=== PATIENT | female | born 1975 | race Caucasian/White ===

== ENCOUNTER 2017-09-23 17:03 | Emergency (ER) | payer OTHER ==
[~2017-09-23] VITALS: Ht 157.5 cm; Wt 68.0 kg
[~2017-09-23 17:03] MED LIST: BACTRIM DS TAB1 EACH PO; DOXYCYCLINE 10100 MG PO; FLAGYL500 MG PO; PERCOCET 5-3251 EACH PO; ULTRAM50 MG PO
[2017-09-23] MEDS ORDERED: NOHOMEMEDICATIONS (17:16)
[2017-09-23 17:33] LABS: URINE BILIRUBIN NEGATIVE (Negative); URINE BLOOD NEGATIVE (Negative); URINE COLOR YELLOW; URINE GLUCOSE-RANDOM NEGATIVE (Negative); URINE KETONES NEGATIVE (Negative); URINE NITRITE-REFLEX NEGATIVE (Negative); URINE PROTEIN TRACE (Negative); URINE SPECIFIC GRAVITY 1.025 (1.005-1.030); URINE UROBILINOGEN 0.2 E.U./dl (0.2-1.0)
[2017-09-23 17:36] LABS: URINE CLARITY HAZY; URINE LEUKOCYTES-REFLEX 3+ (Negative)
[2017-09-23 17:56] LABS: SQUAMOUS 4-10 Moderate /LPF (0-3)
[2017-09-23 17:57] LABS: URINE RBC 0-2 Rare /HPF (0-2); URINE WBC-REFLEX 6-15 Few /HPF (0-5)
[2017-09-23 17:58] LABS: BACTERIA-REFLEX 1-9 Few /HPF (None Seen); CASTS None Seen /LPF (None Seen); CRYSTALS None Seen /LPF (None Seen); MUCUS >6 Heavy strn/LPF (None Seen)
[2017-09-23] MEDS ORDERED: FLAGYL500 MG PO (19:28)
[2017-09-23 20:13] VITALS: BP 124/86
== END 2017-09-23 20:14 | disposition home or self-care (01) ==
LOC: M.ERS 17:03
PROVIDERS: Physician Assistant
DX: N76.0 Acute vaginitis (principal); Z20.2 Contact with and (suspected) exposure to infections with a predominantly sexual mode of transmission; F12.10 Cannabis abuse, uncomplicated

== ENCOUNTER 2018-07-29 23:34 | Emergency (ER) | payer OTHER ==
[~2018-07-29] VITALS: Ht 157.5 cm; Wt 59.0 kg
[~2018-07-29 23:34] MED LIST changes: +NOHOMEMEDICATIONS
[2018-07-30 00:08] LABS: URINE BILIRUBIN NEGATIVE (Negative); URINE BLOOD TRACE (Negative); URINE CLARITY SL CLOUDY; URINE COLOR YELLOW; URINE GLUCOSE-RANDOM NEGATIVE (Negative); URINE KETONES NEGATIVE (Negative); URINE NITRITE-REFLEX NEGATIVE (Negative); URINE PROTEIN TRACE (Negative); URINE SPECIFIC GRAVITY >= 1.030 (1.005-1.030); URINE UROBILINOGEN 0.2 E.U./dl (0.2-1.0)
[2018-07-30 00:10] LABS: URINE LEUKOCYTES-REFLEX 2+ (Negative)
[2018-07-30 00:15] LABS: SQUAMOUS >10 Many /LPF (0-3)
[2018-07-30 00:16] LABS: CASTS None Seen /LPF (None Seen); MUCUS >6 Heavy strn/LPF (None Seen); URINE WBC-REFLEX >25 Many /HPF (0-5)
[2018-07-30 00:17] LABS: BACTERIA-REFLEX 1-9 Few /HPF (None Seen); CRYSTALS None Seen /LPF (None Seen); URINE RBC 3-10 Few /HPF (0-2)
[2018-07-30] MEDS ORDERED: DOXYCYCLINE 10100 MG PO (00:25)
[2018-07-30] MEDS ORDERED: FLAGYL500 M1 PO (00:25)
[2018-07-30 00:50] VITALS: BP 110/76
== END 2018-07-30 00:50 | disposition home or self-care (01) ==
LOC: M.ERS 23:34
PROVIDERS: Nurse Practitioner Family
DX: N72 Inflammatory disease of cervix uteri (principal); A59.09 Other urogenital trichomoniasis

== ENCOUNTER 2018-10-18 18:21 | Emergency (ER) | payer OTHER ==
[~2018-10-18] VITALS: Ht 157.5 cm; Wt 61.2 kg
[~2018-10-18 18:21] MED LIST changes: +FLAGYL500 M1 PO
[2018-10-18 18:50] LABS: URINE BLOOD NEGATIVE (Negative); URINE CLARITY CLEAR; URINE COLOR YELLOW; URINE GLUCOSE-RANDOM NEGATIVE (Negative); URINE KETONES NEGATIVE (Negative); URINE NITRITE-REFLEX NEGATIVE (Negative); URINE PROTEIN NEGATIVE (Negative); URINE SPECIFIC GRAVITY >= 1.030 (1.005-1.030); URINE UROBILINOGEN 0.2 E.U./dl (0.2-1.0)
[2018-10-18 19:03] LABS: URINE BILIRUBIN 1+ (Negative); URINE LEUKOCYTES-REFLEX 2+ (Negative)
[2018-10-18 19:04] LABS: BACTERIA-REFLEX 1-9 Few /HPF (None Seen); CASTS None Seen /LPF (None Seen); ICTOTEST (BILI CONFIRMATORY) Positive (Negative); SQUAMOUS 4-10 Moderate /LPF (0-3); URINE RBC 0-2 Rare /HPF (0-2); URINE WBC-REFLEX 0-5 Rare /HPF (0-5)
[2018-10-18 19:05] LABS: CRYSTALS None Seen /LPF (None Seen)
[2018-10-18] MEDS ORDERED: FLAGYL500 M1 PO (19:14)
[2018-10-18 19:21] VITALS: BP 120/80
== END 2018-10-18 19:21 | disposition home or self-care (01) ==
LOC: M.ERS 18:21
PROVIDERS: Nurse Practitioner Family
DX: A59.9 Trichomoniasis, unspecified (principal); N72 Inflammatory disease of cervix uteri; F17.210 Nicotine dependence, cigarettes, uncomplicated